=== PATIENT | female | born 1975 | race African-American/Black ===

== ENCOUNTER 2018-12-11 15:37 | Observation (INO) | payer OTHER ==
[~2018-12-11] VITALS: Ht 157.5 cm; Wt 87.1 kg
--- OUTSIDE RECORDS SUMMARY | 2018-12-11 15:41 | XMS REPORT | Summary of Care ---
Author Author PAVEL AVENDAÑO M.D. Unknown Address Unknown Phone Unavailable Care Team Providers Care Blood Bank Laboratory Technologist Name Role Phone CHARITO BA M.D. Unavailable Unavailable PAVEL AVENDAÑO M.D. 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 * Start : 30-Apr-2013 Active Allergies and Adverse Reactions Name Dates Details traMADol HCl TABS (Allergy) Status: Active Vicodin TABS (Allergy) Status: Active Past Medical History Name Dates Details History of Acute embolism and thrombosis of deep vein of lower extremity (453.40, I82.409) Status: Resolved History of Migraine without status migrainosus, not intractable (346.90, G43.909) Status: Resolved Procedures Procedure Dates Details History of Section Completed History of Cholecystectomy Completed History of Tonsillectomy Completed History of Knee Surgery Completed History of Breast Surgery Lumpectomy Completed History of Uterine Myomectomy Completed Immunization Name Dates Details Immunizations not documented Family History Name Dates Details Family history of Essential Hypertension Status: Active Family history of Hyperlipidemia Status: Active Social History Name Dates Details Unknown if ever smoked Vital Signs Date Test Result Details [id number] Height 62 in Status: Weight 194 lb Status: Body Mass Index Calculated 35.48 kg/m2 Status: Body Surface Area Calculated 1.89 m2 Status: Results Date Description Value Details [id number] [U] XRAY FOOT MIN 3 VWS LEFT 90285 XR FOOT MIN 3 VWS LEFT Images acquired, not reported on this accession number. Plan of Care Name Dates Details Planned Observations Planned Goals not documented Interventions Provided Labs/Procedures/Imaging* [U] XRAY FOOT MIN 3 VWS LEFT 17789; Done: 30 Jul 2018 Plan* Patient Education/Instructions: * Patient Education Provided * Reassurance * Physical Activity/ Sports Clearance: Physical Activity: Home exercise program and Gradually return to activities as tolerated * Patient/Parent to call or return with any abnormal changes * NSAIDS and ICE application for continued pain and swelling. * Follow Up: * Please schedule an appointment as needed for any future problems or concerns. Instructions Name Dates Details Instructions not documented Encounters Appointment; PAVEL AVENDAÑO M.D. Encounter Diagnosis: Problem not documented On: 30-Jul-2018 14:15
--- OUTSIDE RECORDS SUMMARY | 2018-12-11 15:41 | XMS REPORT ---
Author Author [facility] Address Unknown Phone Unavailable Care Team Providers Care Litigator Name Role Phone Unavailable Unavailable Problems This patient has no known problems. Allergies, Adverse Reactions, Alerts This patient has no known allergies or adverse reactions. Medications This patient has no known medications. Encounters Start Date/Time End Date/Time Encounter Type Admission Type Attending Clinicians Care Facility Care Department Encounter ID 2018-10-12 07:49:00 2018-10-11 05:56:00 Inpatient E [id number] Results Test Description Test Time Test Comments Text Results Atomic Results Result Comments MAMMO DIGITAL MAMMOGRAPHY SCREENING CLINICAL INDICATION: This is a routine annual screening mammogram. The patient has no complaints.MODALITY: Siemens Inspiration Full Field Digital MammographyTECHNIQUE: Digital acquisition of th e breasts is performed on the ACR accredited Full Field Digital Mammography Unit. Computer Assisted Detection (CAD) is then accomplished using [employer]. Imaging of the bilateral breasts is performed.FINDINGS:COMPARISON STUDY: NoneThere are scattered fibroglandular tissues in both breasts.There are no suspicious masses, calcifications or architectural distortion in either breast.IMPRESSION:No mammographic evidence of malignancy. RECOMMENDATION: Routine annual screening mammogram in 1 year is recommended.Category: BIRADS 1 - Negative. For internal use only BIRAD:S1
--- NOTE | 2018-12-11 16:40 | Diagnostic Imaging Report ---
History: Near syncope Comparison studies: None Technique: Axial images were obtained from the skull base to the vertex. Coronal and sagittal reconstructions obtained from the axial data. Dose modulation, iterative reconstruction, and/or weight based adjustment of the mA/kV was utilized to reduce the radiation dose to as low as reasonably achievable. Intravenous contrast: None Findings: Scalp/skull: No abnormalities. No fractures, blastic or lytic lesions. Extra-axial spaces: No masses. No fluid collections. Brain sulci: Appropriate for age. Ventricles: Normal in size and configuration. No hydrocephalus. Parenchyma: No abnormal densities. No masses, hemorrhage, acute or chronic cortical vascular insults. Sellar/suprasellar region: No abnormalities Craniocervical junction: Patent foramen magnum. No Chiari one malformation. Incidental findings: None. IMPRESSION: No acute abnormalities. A preliminary report was given by Neuroradiology fellow Dr. Harding at 4:40 PM on 12/11/2018. I have reviewed the images and agree with findings in the preliminary report. Signed by: Dr. Fernanda Ramirez M.D. on 12/11/2018 7:40 PM
--- NOTE | 2018-12-11 16:46 | Diagnostic Imaging Report ---
Examination: Single AP view of the chest. COMPARISON: None. INDICATION: Headache DISCUSSION: Lines/tubes: None. Lungs: The lungs are well inflated and clear. No pneumonia or pulmonary edema. Pleura: No pleural effusion or pneumothorax. Heart and mediastinum: The heart and the mediastinum are unremarkable. Bones and soft tissues: No acute bony abnormalities. IMPRESSION: 1. No acute cardiopulmonary abnormalities. Signed by: Dr. Candido Mcgowan M.D. on 12/11/2018 4:43 PM
[2018-12-11] MEDS ORDERED: DIPHENHYDRAMINE HCL INJ 50 MG/ML VIAL IV PRN (17:00)
[2018-12-11] MEDS ORDERED: CLONIDINE HCL 0.1 MG TAB PO PRN (17:00)
[2018-12-11] MEDS ORDERED: ACETAMINOPHEN 325 MG TAB PO PRN (17:00)
[2018-12-11] MEDS ORDERED: IBUPROFEN 600 MG TAB PO PRN (17:00)
[2018-12-11] MEDS ORDERED: POTASSIUM CHLORIDE 20 MEQ TAB CR PO ONE ×2 (17:15)
--- NOTE | 2018-12-11 17:46 | NUR ---
called [facility] to transport pt to room 203
--- NOTE | 2018-12-11 18:04 | NUR ---
Report called to AURORA Pineda
--- NOTE | 2018-12-11 18:58 | NUR ---
Report given to oncoming nurse of patient's status.
[2018-12-11 20:14] VITALS: BP 141/71
[2018-12-11] MEDS ORDERED: ZOLPIDEM TARTRATE 5 MG TAB PO PRN (21:00)
[2018-12-11 21:44] LABS: CREATINE KINASE MB 0.8 ng/mL (0-5.0)
[2018-12-11 23:09] VITALS: BP 141/71
[2018-12-12] MEDS ORDERED: PLAVIX75 MG PO (00:09)
[2018-12-12] MEDS ORDERED: ATORVASTATIN CA20 MG PO (00:09)
[2018-12-12] MEDS ORDERED: ASPIR 8181 MG PO (00:09)
[2018-12-12 00:25] VITALS: BP 118/59
[2018-12-12 04:43] VITALS: BP 95/51
[2018-12-12 05:22] LABS: BASOPHILS # (AUTO) 0.1 (0.0-0.1); BASOPHILS % 0.4 % (0.0-1.0); EOSINOPHILS # (AUTO) 0.3 (0.0-0.4); EOSINOPHILS % 2.6 % (0.0-6.0); HEMATOCRIT 39.2 % (34.2-44.1); HEMOGLOBIN 12.5 g/dL (12.0-16.0); LYMPHOCYTES # (AUTO) 3.2 (1.0-3.2); LYMPHOCYTES % 28.5 % (18.0-39.1); MEAN CORPUSCULAR HEMOGLOBIN 27.4 pg (28-32); MEAN CORPUSCULAR HGB CONC 31.9 g/dL (31-35); MEAN CORPUSCULAR VOLUME 85.8 fL (81-99); MONOCYTES # (AUTO) 0.7 (0.2-0.8); MONOCYTES % 5.7 % (4.4-11.3); NEUTROPHILS # (AUTO) 7.1 (2.1-6.9); NEUTROPHILS % 62.5 % (38.7-80.0); PLATELET COUNT 281 x10e3/uL (140-360); RED BLOOD COUNT 4.57 x10e6/uL (3.6-5.1); RED CELL DISTRIBUTION WIDTH 13.3 % (11.7-14.4)
[2018-12-12 05:49] LABS: BLOOD UREA NITROGEN 11 mg/dL (7-26); BUN/CREATININE RATIO 14 (6-25); CALCIUM 9.3 mg/dL (8.4-10.2); CARBON DIOXIDE 25 mmol/L (22-29); CHLORIDE 108 mmol/L (98-107); CHOL/HDL RATIO 2.9 (3.0-3.6); CHOLESTEROL 112 MD/DL (0-199); CREATININE, SERUM 0.81 mg/dL (0.57-1.11); EST GLOMERULAR FILTRATION RATE > 60 ML/MIN (60-); GLUCOSE 101 mg/dL (74-118); HDL CHOLESTEROL 39 MG/DL (40-60); LDL CHOLESTEROL 60 MG/DL (60-130); SODIUM 142 mmol/L (136-145); TRIGLYCERIDES 67 MG/DL (0-149)
[2018-12-12] MEDS ORDERED: FAMOTIDINE 20 MG TAB PO SCH (07:30)
[2018-12-12 08:05] VITALS: BP 112/58
[2018-12-12 08:38] VITALS: BP 112/58
[2018-12-12] MEDS ORDERED: ASPIRIN 81 MG ENTERIC COATED PO SCH (09:00)
--- NOTE | 2018-12-12 11:01 | NUR ---
LAB REPORTED THAT THEY ARE UNABLE TO RESULT THE PATIENT'S TSH IN HOUSE SO THE PATIENT'S BLOOD WILL BE SENT TO AN OUTSIDE LAB TO COMPLETE THE LAB.
[2018-12-12 11:42] VITALS: BP 112/56
--- NOTE | 2018-12-12 18:35 | History and Physical ---
PRIMARY CARE PHYSICIAN: Dr. Ene Myrick with [facility] at [facility]. CHIEF COMPLAINT: Chest tightness and blurred vision. HISTORY OF PRESENT ILLNESS: This is a 43-year-old female with past medical history of TIA x2. She presented to the [facility] ER with complaints of chest tightness and blurred vision while driving. She reports having a couple of episodes in the past of TIA, she had extensive workup with Cardiology with Holter monitor and Neurology with MRI and bubble study with no finding. She reports taking Plavix, aspirin, and statin for stroke prevention, but denies any history of CAD or actual stroke. She denies any nausea, vomiting, diaphoresis, any radiation of pain to the abdomen, left arm, or jaw. She denies any palpitations, passing out or losing consciousness, dysuria, or hematuria. She is admitted under observation for chest pain rule out. PAST MEDICAL HISTORY: TIA x2. PAST SURGICAL HISTORY: 1. x2. 2. Hysterectomy. 3. Cholecystectomy. 4. Tonsillectomy. 5. Knee surgery. FAMILY MEDICAL HISTORY: She reports father has hypertension and mother diabetes. SOCIAL HISTORY: She denies any tobacco, alcohol, or drug use. ALLERGIES: SHE IS ALLERGIC TO ACETAMINOPHEN AND PROPOXYPHENE. REVIEW OF SYSTEMS: GENERAL: No fatigue. HEENT: No trauma. LUNGS: No shortness of breath or cough. CARDIOVASCULAR: Reports chest pain. GI: No nausea, vomiting, or abdominal pain. : No dysuria or hematuria. NEURO: Dizziness and blurred vision. MUSCULOSKELETAL: No weakness. SKIN: Dry and intact. No rash. PSYCH: Stressed. PHYSICAL EXAMINATION: VITAL SIGNS: Temperature 98.0, pulse is 64, respirations 18, blood pressure is 112/58, pulse ox is 98% on room air. GENERAL: No acute distress. HEENT: Normocephalic, atraumatic. NECK: Supple and midline. LUNGS: Clear to auscultation. CARDIOVASCULAR: Regular rate and rhythm. GI: Soft, nontender. NEUROLOGIC: Alert, awake, oriented x3. MUSCULOSKELETAL: Moves all extremities. No edema noted. No focal weakness. SKIN: Dry and intact. PSYCH: Reports being overly stressed due to her mother being in our facility. LABORATORY DATA: WBC 11.33, hemoglobin 12.5, hematocrit 39.2, platelet 281. Sodium is 142, potassium is 4.0, CO2 is 25, creatinine is 0.81. Estimated GFR is greater than 60. CK is 92. Troponin x3 is 0.055 and within normal limits. Triglycerides 67, LDL 60, HDL is 39. IMAGING: Chest x-ray is no acute cardiopulmonary processes abnormality. CT no acute abnormality. Urinalysis at the [facility] was unremarkable for UTI. IMPRESSION AND PLAN: 1. Chest pain, rule out acute coronary syndrome. Troponins x3 negative. EKG normal sinus rhythm with no ST elevation. Chest x-ray unremarkable. Chest pain, likely due to stress and anxiety. 2. Dizziness. This is also likely due to stress and anxiety. CT brain was negative. No focal weakness or change in LOC. We will have her follow up with her neurologist. 3. History of transient ischemic attack. We will continue Plavix, statin and aspirin and follow up with her neurologist. 4. Mild leukocytosis, afebrile and no chest x-ray is negative and no signs of urinary tract infection. 5. Deep vein thrombosis prophylaxis, continue SCDs. PLAN: She has been monitored for any further chest pain or dizziness. She had none so far. She is stable. No shortness of breath, chest pain, fever, or chills. Has been monitored on telemetry with no arrhythmia. No focal weakness. We will discharge her home. FOLLOWUP: Follow up with her PCP, Dr. Myrick at [facility] and follow up with Neurology with [facility]. Dictated by LEANNA Villanueva Renetta Kyle MD MY/MODL /[id number]
== END 2018-12-12 12:30 | disposition home or self-care (01) ==
LOC: FSED 15:37 → ERHOLD 16:55 → MED/SURG2 19:08
PROVIDERS: ADMIT Internal Medicine; ATTEND Internal Medicine
DX: R07.89 Other chest pain (principal); F41.1 Generalized anxiety disorder; R42 Dizziness and giddiness; D72.829 Elevated white blood cell count, unspecified; R29.90 Unspecified symptoms and signs involving the nervous system; Z83.3 Family history of diabetes mellitus; Z82.49 Family history of ischemic heart disease and other diseases of the circulatory system; Z88.6 Allergy status to analgesic agent; Z88.8 Allergy status to other drugs, medicaments and biological substances; Z86.73 Personal history of transient ischemic attack (TIA), and cerebral infarction without residual deficits; Z90.49 Acquired absence of other specified parts of digestive tract
CPT/HCPCS: 36415 ×2; 70450; 71045; 80048; 80053; 80061; 82550 ×2; 82553 ×2; 84443; 84484 ×2; 85025 ×2; 87400; 93005; 99284; G0378 ×2; J1200